=== PATIENT | female | born 1955 | race Caucasian/White ===

== ENCOUNTER 2017-07-05 11:22 | Observation (INO) | payer OTHER ==
--- NOTE | 2017-07-05 11:36 | CPEKG ---
Heart Rate: 87 RR Interval: 690 P-R Interval: 168 QRSD Interval: 82 QT Interval: 352 QTC Interval: 424 P [place]: 51 QRS [place]: 44 T Wave [place]: 39 EKG Severity - BORDERLINE ECG - EKG Impression: SINUS RHYTHM EKG Impression: BORDERLINE T ABNORMALITIES, ANTERIOR LEADS Electronically Signed By: Nuha Kay 06-Jul-2017 10:35:22
[2017-07-05 11:46] LABS: % IMMATURE GRANULYOCYTES 0.6 % (0.0-1.1); ABSOLUTE IMMATURE GRANULOCYTES 0.04 10^3/uL (0.00-0.10); ADD DIFF? NO; ADD MORPH? NO; ADD SCAN? NO; ATYPICAL LYMPHOCYTE FLAG 0 (0-99); FRAGMENT RBC FLAG 0 (0-99); HEMATOCRIT 36.5 % (38.0-47.0); LEFT SHIFT FLG 0 (0-99); LIPEMIA HEMOLYSIS FLAG 90 (0-99); MEAN CELL HEMOGLOBIN CONCENTR. 35.6 g/dL (32.4-36.7); MEAN CELL VOLUME 89.9 fL (81.5-99.8); MEAN PLATELET VOLUME 9.4 fL (8.7-11.7); PLATELET CLUMPS FLAG 0 (0-99); PLATELET COUNT 195 10^3/uL (150-400); RED BLOOD CELL COUNT 4.06 10^6/uL (4.18-5.33); RED CELL DISTRIBUTION WIDTH 13.7 % (11.5-15.2)
--- NOTE | 2017-07-05 11:52 | EDPHY ---
H & P Stated Complaint: Midsternal CP, SOB, dyspnea since 2am,sent from PCP w/EKG in hand Time Seen by Provider: 07/05/17 11:40 HPI/ROS: CHIEF COMPLAINT: Chest pain HISTORY OF PRESENT ILLNESS: This patient is a 62 y/o female with history of atrial fibrillation arriving at request of PCP for evaluation chest pain onset this morning around 2am, 10 hours prior to arrival. She woke around 2am due to discomfort in her right shoulder and across her upper chest and back. She was able to go back back to sleep until 5:45 at which time her initial discomfort had resolved, but she noted throat tightness which radiated into her sternum when walking. Currently, she has a sensation of tightness extending linearly from her throat into her chest. The discomfort does not travel up and down at all. She rates her current discomfort while lying down at around 1/10 in severity. She has had difficulty breathing with exertion due to pain with inspiration. She feels a spot of discomfort at the base of her left shoulder blade. She did eat a breakfast bar this morning, but this did not affect her discomfort. She has not had similar symptoms in the past. She denies any unusual activities yesterday. No abdominal pain. No pain or swelling in her legs or recent travel or surgeries. REVIEW OF SYSTEMS: A 10 point review of systems was performed and is negative with the exception of the elements mentioned in the history of present illness. - Personal History Current Tetanus Diphtheria and Acellular Pertussis (TDAP): Yes Tetanus Vaccine Date: unsure - Medical/Surgical History PMH: 1. Atrial flutter/fibrillation s/p multiple ablations (Dr. Chavez) 2. Celiac disease 3. Cholecystectomy 4. Left hemicolectomy Hx Asthma: No Hx Chronic Respiratory Disease: No Hx Diabetes: No Hx Cardiac Disease: Yes Hx Renal Disease: No Hx Cirrhosis: No Hx Alcoholism: No Hx HIV/AIDS: No Hx Splenectomy or Spleen Trauma: No Other PMH: Afib/aflutter- two cardioversions and one ablation, Lt hemicoloncetomy, SBO, cholecystectomy - Social History Smoking Status: Never smoked Additional Social History: at bedside. Nonsmoker. Lives in [place]. - Physical Exam Exam: General Appearance: Alert, pleasant Eyes: Pupils equal and round, no conjunctival pallor or injection ENT, Mouth: Mucous membranes moist Neck: Normal inspection Chest: Normal inspection, no chest wall tenderness, lungs are clear to auscultation Cardiovascular: Regular rate and rhythm Gastrointestinal: Abdomen is soft and non-tender Back: No vertebral tenderness to palpation or percussion Neurological: A&O, nonfocal, normal gait Skin: Warm and dry, no rash Extremities: Nontender, no pedal edema Psychiatric: Mood and affect normal Constitutional: Initial Vital Signs Temperature (C) 36.8 C 07/05/17 11:22 Heart Rate 99 07/05/17 11:22 Respiratory Rate 18 07/05/17 11:22 Blood Pressure 138/86 H 07/05/17 11:22 O2 Sat (%) 97 07/05/17 11:22 O2 Delivery Mode Room Air Allergies/Adverse Reactions: Cephalosporins Allergy (Verified 07/05/17 11:23) codeine [Codeine] Allergy (Verified 07/05/17 11:23) gluten Allergy (Verified 07/05/17 11:23) latex Allergy (Verified 07/05/17 11:23) morphine Allergy (Verified 07/05/17 11:23) ondansetron HCl [From Zofran (as hydrochloride)] Allergy (Verified 07/05/17 11: 23) Sulfa (Sulfonamide Antibiotics) Allergy (Verified 07/05/17 11:23) Home Medications: Medication Instructions Recorded Levothyroxine [Synthroid 150 mcg 150 mcg PO DAILY06 10/13/14 (*)] Estradiol [Estradiol 1 MG (*)] 0.5 mg PO HS 12/15/14 Metoprolol Tartrate [Lopressor 25 25 mg PO BID 12/15/14 mg (*)] medroxyPROGESTERone [Provera 2.5 2.5 mg PO HS 12/15/14 mg (*)] Aspirin [Aspirin 325 mg (*)] 325 mg PO DAILY 07/05/17 Nitrofurantoin Monohyd/M-Cryst 100 mg PO HS 07/05/17 [Macrobid 100 mg Capsule] Omeprazole [Prilosec 20 mg] 20 mg PO DAILY 07/05/17 cycloSPORINE 0.05% [Restasis Opht 1 drop EACHEYE BID 07/05/17 Drops(*)] Medical Decision Making - Diagnostics EKG Interpretation: EKG interpreted by me reveals sinus rhythm, rate 87, borderline T wave abnormalities in anterior leads. Imaging Results: CT pulmonary angiogram discussed with Dr. Reyes reveals no evidence of pulmonary embolism, pneumonia or dissection. Imaging: Discussed imaging studies w/ smt technician Radiologist, I viewed and interpreted images myself ED Course/Re-evaluation: 62 year old female presents with chest pain persistent since 5:45am this morning. She did take an aspirin today. Exam unremarkable. No chest wall tenderness or vertebral tenderness on palpation or percussion. Plan for EKG, chest x-ray. IV established. Plan for labs including CBC, BMP, Troponin, D-dimer , BNP. Plan to administer GI cocktail. No change with GI cocktail. Troponin negative. D-dimer elevated at 1.72. Plan for CTA chest to r/o PE/ dissection. 13:[address] Reyes, radiologist. CTA chest negative. CT scan results discussed with the patient and her . She continues to have ongoing chest pain. Given ongoing exertional chest pain and abnormal EKG, I will admit her for further cardiac evaluation. 14:13 Consulted with hospitalist service. Dr. aDwson accepts admission for chest pain. Differential Diagnosis: Differential diagnosis includes though it is not limited to pneumonia, pneumothorax, pulmonary embolism, aortic dissection, pericarditis, acute coronary syndrome. - Data Points Laboratory Results: Laboratory Results 07/05/17 11:38 07/05/17 11:38 Medications Given: Acetaminophen (Tylenol) 650 mg PO Q4 PRN PRN Reason: Pain, Mild/Fever, Can Take PO Stop: 01/01/18 15:51 Last Admin: 07/06/17 04:34 Dose: 650 mg Cyclosporine (Restasis) 1 drop EACHEYE BID MUSHTAQ Stop: 01/01/18 20:59 Last Admin: 07/05/17 22:13 Dose: Not Given Estradiol (Estradiol) 0.5 mg PO HS MUSHTAQ Stop: 01/01/18 20:59 Last Admin: 07/05/17 20:26 Dose: 0.5 mg Ketorolac Tromethamine (Toradol) 30 mg IVP Q6 PRN PRN Reason: Pain, Inflammatory Stop: 07/10/17 15:56 Last Admin: 07/06/17 04:34 Dose: 30 mg Levothyroxine Sodium (Synthroid) 150 mcg PO DAILY06 MUSHTAQ Stop: 01/02/18 05:59 Last Admin: 07/06/17 04:34 Dose: 150 mcg Medroxyprogesterone Acetate (Provera) 2.5 mg PO HS MUSHTAQ Stop: 01/01/18 20:59 Last Admin: 07/05/17 20:26 Dose: 2.5 mg Metoprolol Tartrate (Lopressor) 25 mg PO BID MUSHTAQ Stop: 01/01/18 20:59 Last Admin: 07/05/17 20:27 Dose: 25 mg Nitrofurantoin Macrocrystals (Macrobid) 100 mg PO HS [facility] PRN Reason: Protocol Stop: 08/04/17 20:59 Last Admin: 07/05/17 20:26 Dose: 100 mg Discontinued Medications Acetaminophen (Tylenol) 650 mg PO EDNOW ONE Stop: 07/05/17 12:56 Last Admin: 07/05/17 13:01 Dose: 650 mg Al Hydroxide/Mg Hydroxide (Maalox Susp) 30 ml PO ONCE ONE Stop: 07/05/17 12:02 Last Admin: 07/05/17 12:05 Dose: 30 ml Hyoscyamine Sulfate (Levsin, Hyomax-Sl) 0.25 mg PO ONCE ONE Stop: 07/05/17 12:02 Last Admin: 07/05/17 12:05 Dose: 0.25 mg Sodium Chloride (Ns) 1,000 mls @ 100 mls/hr IV CONT MUSHTAQ Stop: 07/06/17 01:59 Last Admin: 07/05/17 18:18 Dose: 1,000 mls Lidocaine (Lidocaine 2% Viscous) 15 ml PO ONCE ONE Stop: 07/05/17 12:02 Last Admin: 07/05/17 12:05 Dose: 15 ml Departure - Departure Disposition: [facility] Inpatient Acute Clinical Impression: Chest pain Qualifiers: Chest pain type: other chest pain Qualified Code(s): R07.89 - Other chest pain Condition: Fair Report Scribed for: Nuha Kay Report Scribed by: Elodia Jones Date of Report: 07/05/17 Time of Report: 11:52 Physician Review and Approval Statement: 07/05/17 11:52 Portions of this note were transcribed by a medical office rep. I personally performed a history, physical exam, medical decision making, and confirmed accuracy of information the transcribed note.
[2017-07-05] MEDS ORDERED: LIDOCAINE 2% VISCOUS 15 ML UDCUP PO ONE (12:01)
[2017-07-05] MEDS ORDERED: MAG HYDROX/AL HYDROX/SIMETH 30 ML UDCUP PO ONE (12:01)
[2017-07-05] MEDS ORDERED: HYOSCYAMINE SULFATE 0.125 MG TAB PO ONE (12:01)
[2017-07-05 12:03] LABS: ANION GAP 16 mEq/L (8-16); CARBON DIOXIDE 18 mEq/l (22-31); CHLORIDE 102 mEq/L (97-110); CREATININE 0.7 mg/dL (0.6-1.0); GLOMERULAR FILTRATION RATE > 60; GLUCOSE 137 mg/dL (70-100); POTASSIUM 3.5 mEq/L (3.5-5.2); SODIUM 136 mEq/L (134-144)
[2017-07-05 12:17] LABS: TROPONIN I < 0.012 ng/mL (0.000-0.034)
[2017-07-05] MEDS ORDERED: IOPAMIDOL (ISOVUE 370) 100 ML BTL IV ONE (12:39)
[2017-07-05] MEDS ORDERED: ACETAMINOPHEN 325 MG TAB PO ONE (12:55)
[2017-07-05] MEDS ORDERED: NITROGLYCERIN 0.4 MG BTL SL PRN (15:47)
[2017-07-05] MEDS ORDERED: ACETAMINOPHEN 325 MG TAB PO PRN (15:52)
[2017-07-05] MEDS ORDERED: NS 1,000 ML IV SCH (16:00)
--- NOTE | 2017-07-05 16:28 | GHP ---
[f rep st] HISTORY AND PHYSICAL DATE OF ADMISSION: 07/05/2017 CHIEF COMPLAINT: Chest pain. HISTORY: The patient is a 62-year-old female who developed chest pain at 2:00 this morning. She was awakened from sleep with right shoulder pain, which she noticed went across her chest and radiated t o her back. She fell back asleep, and when she woke up around 5 a.m., the pain had moved very centra lly to her chest. She has worsening pain whenever she does any kind of walking or moving. She also developed a sore throat and saw her primary care doctor this morning, who did a strep test, which is pending. She is very dyspneic on exertion, and she just feels like she cannot get a deep breath. Cu rrently her pain is 3/10 at rest and 9/10 with ambulation. She describes it as an ache. She was giv en a GI cocktail in the ER without any improvement. PAST MEDICAL HISTORY: 1. Atrial fibrillation, status post ablation x2. 2. Celiac disease. PAST SURGICAL HISTORY: 1. Cholecystectomy. 2. Diverticulitis, status post left hemicolectomy. 3. Small-bowel obstruction, status post lysis of adhesions. MEDICATIONS: Please see computer record for full detailed list. ALLERGIES: Cephalosporin, sulfa, morphine. SOCIAL HISTORY: No smoking. No alcohol. She lives with her . REVIEW OF SYSTEMS: Complete review of systems obtained. Review of systems negative for constitution al, HEENT, GI, pulmonary, cardiovascular, , hematology, skin, muscular, endocrine, and psych except for positives as in HPI. FAMILY HISTORY: Brother with a mild SD in his 50s. PHYSICAL EXAMINATION: GENERAL: Well-developed, well-nourished female in no acute distress. VITAL S IGNS: Temperature is 36.8, pulse 83, blood pressure 139/81, satting 97% on room air. EYES: Normal conjunctivae. Pupils react to light. ENT: Normal ears and nose. Hearing intact. Normal teeth. O ropharynx moist. NECK: Trachea midline. No thyromegaly. CHEST: Normal respiratory effort. Lungs clear to auscultation bilaterally. CARDIOVASCULAR: Regular rate and rhythm. No murmur. No extrem ity edema. ABDOMEN: Soft, nontender. No hepatosplenomegaly. SKIN: Warm, dry, and intact with no rash. MUSCULOSKELETAL: No cyanosis or clubbing. Strength 5/5 upper and lower extremities. NEUROLO GIC: Cranial nerves intact. Normal sensation to light touch. PSYCHIATRIC: Alert and oriented x3. Normal affect. Normal judgment. Normal memory. LABORATORY DATA: White count 6.53, hematocrit 36.5, platelets 195. Sodium 136, potassium 3.5, chlor jacquie 102, bicarb 18, BUN 7, creatinine 0.7, glucose 137. Troponins negative. BNP is 322. D-dimer wa s positive. CT angiogram of the chest was negative for PE. Chest x-ray reviewed by me, and my perso nal interpretation is normal sinus rhythm with some mild anterior T-wave inversions. ASSESSMENT/PLAN: 1. Chest pain: She does have significant chest pain with any exertion, which is concerning' althoug h, she does overall have a lack of risk factors. This very well may be musculoskeletal; however, I d o think it is prudent to do overnight observation to ensure no cardiac etiology. Will work to make h er chest pain-free. Will try sublingual nitroglycerin. She refuses any narcotics. We can give a tr ial of IV Toradol. Will continue her daily aspirin and check a lipid panel in the morning. Will rolanda edule her for a stress test in the morning, but if she still has persistence of pain with exertion as she is having at this time, it may need to be converted to a cardiac catheterization. 2. Celiac disease: She can continue a gluten free diet. 3. Sore throat: A strep test was done at primary care this morning. They were told they will be ca lled as soon as results are available. If strep is positive, would initiate antibiotics. 4. Atrial fibrillation, status post ablation. Continue metoprolol and aspirin. CODE STATUS: Full. ADMISSION STATUS: Will admit to observation. She may be able to go home tomorrow if workup is negat rosales. DEEP VEIN THROMBOSIS PROPHYLAXIS: She is low risk. Will place her on SCDs. /[id number]/MODL
[2017-07-05] MEDS: KETOROLAC 30 MG/1 ML SDV IVP PRN (18:14)
[2017-07-05] MEDS: METOPROLOL TARTRATE 25 MG TAB PO SCH (20:27)
[2017-07-05] MEDS ORDERED: NITROFURANTOIN MACROBID 100 MG CAP PO SCH (21:00)
[2017-07-05] MEDS ORDERED: ESTRADIOL 1 MG TAB PO SCH (21:00)
[2017-07-05] MEDS: CYCLOSPORINE 0.05% 1 EACH BOX EACHEYE SCH (22:13)
[2017-07-06] MEDS: KETOROLAC 30 MG/1 ML SDV IVP PRN (04:34)
[2017-07-06 05:48] LABS: CHOLESTEROL 137 mg/dL (140-220); CHOLESTEROL/HDL RATIO 5.27 RATIO (1.00-4.44); HIGH DENSITY LIPOPROTEIN 26 mg/dL (40-85); LDL/HDL RATIO 3.69 RATIO (1.00-3.22); LOW DENSITY LIPOPROTEIN 96 mg/dL (80-100); NON-HIGH DENSITY LIPOPROTEIN 111 mg/dL (90-129); TRIGLYCERIDE 77 mg/dL (35-135); VERY LOW DENSITY LIPOPROTEINS 15 mg/dL (8-25)
[2017-07-06] MEDS ORDERED: LEVOTHYROXINE 150 MCG TAB PO SCH (06:00)
[2017-07-06] MEDS ORDERED: PANTOPRAZOLE SODIUM 40 MG TAB PO SCH (09:00)
[2017-07-06] MEDS ORDERED: ASPIRIN 325 MG TAB PO SCH (09:00)
[2017-07-06] MEDS ORDERED: REGADENOSON 0.4 MG/5 ML SYR IVP ONE (09:24)
--- NOTE | 2017-07-06 09:44 | CPEKG ---
Heart Rate: 72 RR Interval: 833 P-R Interval: 164 QRSD Interval: 82 QT Interval: 408 QTC Interval: 447 P [place]: 60 QRS [place]: 59 T Wave [place]: 40 EKG Severity - BORDERLINE ECG - EKG Impression: SINUS RHYTHM EKG Impression: BORDERLINE T ABNORMALITIES, ANTERIOR LEADS-- less compared July 05, 2017 Electronically Signed By: Trevon Lundy 06-Jul-2017 09:56:31
--- NOTE | 2017-07-06 10:46 | CPR ---
[f rep st] NONINVASIVE CARDIAC PROCEDURE REPORT DATE OF PROCEDURE: 07/06/2017 PROCEDURE PERFORMED: Lexiscan nuclear stress test. INDICATION: The patient is a 62-year-old female, with a history of paroxysmal atrial fibrillation, w ho presented to the hospital complaining of chest pressure and shortness of breath, which woke her fr om her sleep. It persisted for at least 12 hours. She is an active individual and has noted that it is more difficult for her to walk up a hill than it was in the past. She denies any history of hype rtension, hyperlipidemia, diabetes, or tobacco use. She does have a family history of coronary arter y disease, with her brother having an [place] at the age of 55. DESCRIPTION OF PROCEDURE: Consent was obtained, and the patient was placed on continuous telemetry. Her resting EKG revealed a normal sinus rhythm with heart rate of 72. MS interval 164, QRS duration of 82, and a QTc of 447. She has nonspecific ST-T wave changes. The patient was infused with Hannah can and complained of abdominal discomfort and shortness of breath. She remained in normal sinus rhy thm with PACs throughout the study. Her T-wave changes in the anterior leads became more pronounced with the infusion but returned to baseline in recovery. Her blood pressure at rest was 124/78, and i t stayed stable throughout the procedure. Her oxygen saturation remained stable as well. PLAN: Await nuclear images. /[id number]/MODL
[2017-07-06] MEDS: CYCLOSPORINE 0.05% 1 EACH BOX EACHEYE SCH (11:05)
[2017-07-06] MEDS: METOPROLOL TARTRATE 25 MG TAB PO SCH (11:05)
[2017-07-06 11:09] VITALS: BP 150/94; PULSE 70; RESP 13; TEMP 98.4; O2SAT 94
--- NOTE | 2017-07-06 16:14 | PDDCSUM ---
Discharge Summary Discharge Summary: 62 yo female with hx of afib s/p ablation, celiac disease, admitted for acute chest pain which resolved overnight. W/u was negative to include negative troponins, EKG, and Rebeka scan. D-dimer was elevated for unclear reasons. CTA was negative. She feels much better today and has no sx's. She wants to discharge. She will f/u with her PCP. No changes to her home medication regimen were made. DDX: #Chest pain, likely atypical #Hx of Afib #Hx of Celiac disease Exam: NAD AAOX3 RRR CTAB NO EDEMA S/NT/ND MEDS: SEE MED REC F/U: F/U WITH PCP IN 1-2 WEEKS. total care time spent on discharge is 36 minutes
--- NOTE | 2017-07-06 17:03 | ASDISCHSUM ---
Discharge Information Plan Status:Home with No Needs Medically Cleared to Leave:07/06/2017 Discharge Date:07/06/2017 04:55 PM CM D/C Disposition: ADT D/C Disposition:Home, Routine, Self-Care Projected Discharge Date:07/06/2017 12:00 AM Transportation at D/C: Discharge Delay Reason: Follow-Up Date:07/06/2017 12:00 AM Discharge Slot: Final Diagnosis: Placement Information Patient Contact Information Contact Name:GISELL Relationship: Address:[address] [place] [address] City:[place] Alternate Phone: [facility]/Zip Code:[place] [address] Email: Financial Information Financial Class:HMO and PPO Plans Primary Plan Desc:[employer] PPO HMO Primary Plan Number:[id number] Secondary Plan Desc: Secondary Plan Number: Assessment Information Intervention Information
== END 2017-07-06 16:55 | disposition home or self-care (01) ==
LOC: F2W 17:09
PROVIDERS: ADMIT Internal Medicine; ATTEND Family Medicine
DX: R07.9 Chest pain, unspecified (principal); R06.02 Shortness of breath; J02.9 Acute pharyngitis, unspecified; I48.91 Unspecified atrial fibrillation; K90.0 Celiac disease; Z87.19 Personal history of other diseases of the digestive system; Z82.49 Family history of ischemic heart disease and other diseases of the circulatory system; Z90.49 Acquired absence of other specified parts of digestive tract; Z88.2 Allergy status to sulfonamides
CPT/HCPCS: 71275; 78452; 93005; 93017; 99285; A9500; G0378; J1885; J2785; Q9967

== ENCOUNTER → 2018-02-21 | Outpatient (CLI) | payer OTHER | LOC: BMCIMAGING 08:39 | PROVIDERS: ATTEND Physician Assistant | DX: M16.11 Unilateral primary osteoarthritis, right hip (principal) ==